=== PATIENT | male | born 1965 | race Asian ===

== ENCOUNTER 2020-10-30 06:53 | Day surgery (SDC) | payer OTHER, SELFPAY ==
[~2020-10-30] VITALS: Ht 162.6 cm; Wt 70.3 kg
[2020-10-30] MEDS ORDERED: MIDAZOLAM 5 MG/5 ML VIAL ONE (10:11)
[2020-10-30] MEDS ORDERED: diphenhydrAMINE 50 MG/ML VIAL ONE (10:11)
[2020-10-30] MEDS ORDERED: fentaNYL citrate 0.05 MG/ML VIAL ONE (10:11)
[2020-10-30] MEDS ORDERED: LIDOCAINE 2% 100 MG/5 ML UJET TP ONE ×2 (10:12→10:40)
[2020-10-30] MEDS ORDERED: MIDAZOLAM 2 MG/2 ML VIAL IVP ONE (10:40)
[2020-10-30] MEDS ORDERED: fentaNYL citrate 0.05 MG/ML VIAL IVP ONE (10:40)
== END 2020-10-30 11:38 | disposition home or self-care (01) ==
LOC: MDS 06:53 → MMU 06:54 → MDS 11:38
PROVIDERS: ATTEND Internal Medicine Gastroenterology
DX: Z12.11 Encounter for screening for malignant neoplasm of colon (principal); K63.5 Polyp of colon; K21.9 Gastro-esophageal reflux disease without esophagitis; F17.210 Nicotine dependence, cigarettes, uncomplicated; Z20.828 Contact with and (suspected) exposure to other viral communicable diseases
CPT/HCPCS: 45385; 88305; J2250; J3010; U0003; J1200